=== PATIENT | male | born 1980 | race Two or more races ===

== ENCOUNTER 2019-07-05 14:57 | Emergency (ER) | payer OTHER ==
[~2019-07-05] VITALS: Ht 165.1 cm; Wt 78.2 kg
[2019-07-05 16:46] VITALS: BP 126/83
== END 2019-07-05 17:57 ==
LOC: ED 15:45
DX: S39.012A Strain of muscle, fascia and tendon of lower back, initial encounter (principal); X58.XXXA Exposure to other specified factors, initial encounter; Y93.89 Activity, other specified; Y92.89 Other specified places as the place of occurrence of the external cause; Y99.8 Other external cause status
CPT/HCPCS: 36415; 80053; 81001; 85025; 96372; 99283; J1885